=== PATIENT | male | born 1990 | race American Indian/Alaskan Native ===

== ENCOUNTER 2020-01-13 13:50 | Emergency (ER) | payer SELFPAY ==
[2020-01-13] MEDS ORDERED: MORPHINE 4 MG/1 ML INJ ONE (13:54)
[2020-01-13] MEDS ORDERED: SODIUM CHLORIDE 0.9% 1000 ML 1,000 ML IV ONE (13:54)
[2020-01-13] MEDS ORDERED: MORPHINE 4 MG/1 ML INJ IV ONE (13:54)
[2020-01-13] MEDS ORDERED: DIPHtheria,PERTUSSIS(ACELL),TETANUS VACCINE/PF 0.5 ML VIAL IM ONE (13:55)
[2020-01-13] MEDS ORDERED: ONDANSETRON 4 MG/2 ML INJ IV ONE (13:55)
[2020-01-13] MEDS ORDERED: HYDROmorphone 1 MG/1 ML INJ IV ONE (14:01)
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
[2020-01-13] MEDS ORDERED: CEFEPIME/NS 2 GM/100 ML 2 GM/100 ML BAG IV ONE (14:07)
[2020-01-13 14:13] LABS: Hematocrit 44.4 % (35.5-45.6); Hemoglobin 14.7 gm/dl (11.8-15.2); Mean Corpuscular HGB Conc 33 % (32-34); Mean Corpuscular Volume 90 fl (84-94); Platelet Count 189 K/mm3 (140-440); Red Blood Count 4.94 M/mm3 (3.65-5.03); Red Cell Distribution Width 13.8 % (13.2-15.2)
[2020-01-13 14:19] LABS: INR 1.67 (0.87-1.13)
[2020-01-13 14:23] LABS: BUN/Creatinine Ratio 8; Blood Urea Nitrogen 9 mg/dL (9-20); Calcium 8.9 mg/dL (8.4-10.2); Hemolysis Index 10
[2020-01-13 14:32] LABS: Partial Thromboplastin Time 60.1 Sec. (24.2-36.6)
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
[2020-01-13 14:46] LABS: Basophils % (Manual) 0 % (0.0-1.8); Total Cells Counted 100
[2020-01-13 14:47] LABS: Platelet Estimate Consistent w Auto; RBC Morphology Normal
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
[2020-01-13 15:18] VITALS: BP 133/81
== END 2020-01-13 15:45 | disposition short-term general hospital (02) ==
LOC: ED 13:50
DX: S31.33XA Puncture wound without foreign body of scrotum and testes, initial encounter (principal); S71.131A Puncture wound without foreign body, right thigh, initial encounter; X58.XXXA Exposure to other specified factors, initial encounter; Y93.89 Activity, other specified; Y92.89 Other specified places as the place of occurrence of the external cause; Y99.8 Other external cause status
CPT/HCPCS: 36415; 71045; 72170; 80048; 82550; 85007; 85025; 85610; 85730; 86850; 86900; 86901; 90471; 90715; 96365; 96375; 99284; J0690; J0692; J1170; J2270; J2405; 80320; G0480